=== PATIENT | female | born 1980 | race Two or more races ===

== ENCOUNTER 2018-03-29 10:15 | Inpatient (IN) | payer OTHER ==
[~2018-03-29] VITALS: Ht 160 cm; Wt 71.7 kg
[2018-03-29] MEDS ORDERED: DEPO-PROVE150 MG/1 M IM (12:16)
[2018-04-01] MEDS ORDERED: CODE1TAB37 PO (09:13)
== END 2018-04-01 09:53 | disposition home or self-care, planned readmission (81) | DRG 743 ==
LOC: OB/GYN 03-31 06:36 → O/R 03-31 06:36 → SURH 03-31 07:00 → OB/GYN 03-31 10:40
PROVIDERS: Obstetrics & Gynecology
PROC: 0USG4ZZ Reposition Vagina, Percutaneous Endoscopic Approach (ICD-10-PCS; 2018-03-31)
PROC: 0DNW4ZZ Release Peritoneum, Percutaneous Endoscopic Approach (ICD-10-PCS; 2018-03-31)
PROC: 0JQC3ZZ Repair Pelvic Region Subcutaneous Tissue and Fascia, Percutaneous Approach (ICD-10-PCS; 2018-03-31)
PROC: 0TJB8ZZ Inspection of Bladder, Via Natural or Artificial Opening Endoscopic (ICD-10-PCS; 2018-03-31)
PROC: 0UT9FZZ Resection of Uterus, Via Natural or Artificial Opening With Percutaneous Endoscopic Assistance (ICD-10-PCS; principal; 2018-03-31 07:00)
DX: N92.0 Excessive and frequent menstruation with regular cycle (principal); N81.11 Cystocele, midline; N80.0 Endometriosis of uterus